=== PATIENT | female | born 1995 | race Caucasian/White ===

== ENCOUNTER 2017-10-18 12:45 | Inpatient (IN) | payer OTHER ==
[2017-10-18 15:12] VITALS: BMI 28.0
[2017-10-18 16:24] LABS: BASO % 0.2 % (0-2.0); EOS % 0.9 % (0-4.5); HEMATOCRIT 31.5 % (32.4-45.2); HEMOGLOBIN 10.5 GM/dL (10.7-15.3); LYMPH % 23.1 % (8-40); MCH 29.6 pg (25.7-33.7); MCHC 33.2 g/dl (32.0-36.0); MEAN CELL VOLUME 89.1 fl (80-96); MONO % 5.5 % (3.8-10.2); NEUT % 70.3 % (42.8-82.8); PLATELET COUNT 190 K/MM3 (134-434); RBC 3.54 M/mm3 (3.60-5.2); RDW 12.9 % (11.6-15.6); WHITE BLOOD COUNT 6.4 K/mm3 (4.0-10.0)
[2017-10-18 16:28] LABS: INR 0.86 (0.82-1.09); PROTHROMBIN TIME (PATIENT) 9.7 SEC (9.98-11.88)
[2017-10-18 16:31] LABS: ACTIVATED PTT 28.4 SECONDS (26.9-34.4)
[2017-10-18 16:37] LABS: ANION GAP 9 (8-16); BLOOD UREA NITROGEN 8 mg/dL (7-18); CALCIUM 8.2 mg/dL (8.5-10.1); CHLORIDE 105 mmol/L (98-107); CO2 22 mmol/L (21-32); CREATININE 0.4 mg/dL (0.55-1.02); GAMMA GLUTAMYL TRANSPEPTIDASE 17 U/L (5-85); GLUCOSE,RANDOM 85 mg/dL (74-106); POTASSIUM 4.1 mmol/L (3.5-5.1); SGOT/AST 29 U/L (15-37); SGPT/ALT 58 U/L (12-78); SODIUM 136 mmol/L (136-145); URIC ACID 4.3 mg/dL (2.6-7.2)
[2017-10-18] MEDS ORDERED: DINOPROSTONE 10 MG VAGINAL SUPPOSITORY VG ONE ×2 (19:05→19:10)
[2017-10-18] MEDS ORDERED: BUTORPHANOL TARTRATE 1 MG/ML VIAL IVPB ONE (19:10)
[2017-10-18] MEDS ORDERED: PROMETHAZINE HCL 25 MG/1 ML VIAL IVPB ONE (19:10)
[2017-10-18] MEDS ORDERED: DEXTROSE 5%-LACTATED RINGERS 1,000 ML IV SCH (19:10)
--- NOTE | 2017-10-18 23:52 | HP ---
Past Medical History - Admission Chief Complaint: Elective induction History of Present Illness: 22 yo @ 36.5 weeks gestation, EDC 11/10/17, sent to L&D for induction of labor by Dr. Cool due to Cholestasis of . History Source: Patient Limitations to Obtaining History: No Limitations - Past Medical History ...: 1 ...Para: 0 ...LMP: 02/03/17 ... Weeks Gestation by Dates: 36.5 ...EDC by Dates: 11/10/17 ...EDC by Sono: 11/10/17 - Past Surgical History Past Surgical History: Yes: None Hx Myomectomy: No Hx Transabdominal Cerclage: No - Smoking History Smoking history: Never smoked Have you smoked in the past 12 months: No - Alcohol/Substance Use Hx Alcohol Use: No History of Substance Use: reports: None - Social History Usual Living Arrangement: Yes: With Significant Other History of Recent Travel: No Home Medications - Allergies Allergies/Adverse Reactions: Allergies Allergy/AdvReac Type Severity Reaction Status Date / Time No Known Allergies Allergy Verified 10/18/17 15:14 - Home Medications Home Medications: Ambulatory Orders Tablet 1 tab-cap PO DAILY 10/18/17 Ursodiol [Actigal -] 300 mg PO TID 10/18/17 Family Disease History - Family Disease History Family History: Unremarkable Review of Systems - Review of Systems Constitutional: reports: No Symptoms Eyes: reports: No Symptoms HENT: reports: No Symptoms Neck: reports: No Symptoms Cardiovascular: reports: No Symptoms Respiratory: reports: No Symptoms Gastrointestinal: reports: No Symptoms Genitourinary: reports: No Symptoms Breasts: reports: No Symptoms Reported Musculoskeletal: reports: No Symptoms Integumentary: reports: No Symptoms Neurological: reports: No Symptoms Endocrine: reports: No Symptoms Hematology/Lymphatic: reports: No Symptoms Psychiatric: reports: No Symptoms Pain Intensity: 2 Physical Exam - Maternity Vital Signs: Vital Signs Temperature 98.7 F 10/18/17 23:00 Pulse Rate 61 10/18/17 23:00 Respiratory Rate 18 10/18/17 23:00 Blood Pressure 112/69 10/18/17 23:00 O2 Sat by Pulse Oximetry (%) Constitutional: Yes: Well Nourished Eyes: Yes: Conjunctiva Clear HENT: Yes: Atraumatic Neck: Yes: Supple Cardiovascular: Yes: Regular Rate and Rhythm Lungs: Clear to auscultation - Abdominal Exam/OB Number of Fetuses: Single Presentation: Vertex - Vaginal Exam/OB Dilatation (cm): 1 Effacement (%): 60 Amniotic Membrane Status: Intact Presentation: Vertex/Position Station: -2 - Physical Exam ...Motor Strength: WNL Psychiatric: Yes: Alert, Oriented - Labs Lab Results: CBC, BMP 10/18/17 15:30 10/18/17 15:30 Problem List - Problems (1) Cholestasis during in third trimester Code(s): O26.613 - LIVER AND BILIARY TRACT DISORD IN , THIRD TRIMESTER ; K83.1 - OBSTRUCTION OF BILE DUCT Assessment/Plan Cholestasis of pregnacy Admit to L&D Cervidil induction
[2017-10-19] MEDS ORDERED: BUTORPHANOL TARTRATE 1 MG/ML VIAL ONE (06:29)
[2017-10-19] MEDS ORDERED: PROMETHAZINE HCL 25 MG/1 ML VIAL ONE (06:29)
[2017-10-19] MEDS ORDERED: PROMETHAZINE HCL 25 MG/1 ML VIAL IVPB ONE (08:52)
[2017-10-19] MEDS ORDERED: BUTORPHANOL TARTRATE 1 MG/ML VIAL IVPUSH ONE (08:52)
--- NOTE | 2017-10-19 08:52 | PN ---
Progress Note (short form) - Note Progress Note: cx 3 cm 80 vx -2 mi, fhr cat 1 , irregular contraction, cervidil was removed at 7 10 am, advised pitrenae, rbapril discussed
[2017-10-19] MEDS ORDERED: OXYTOCIN 30 UNITS in 0.9% NS 30 UNIT/500 ML INFUS.BAG IVPB SCH (09:00)
[2017-10-19] MEDS ORDERED: AMPICILLIN SODIUM 2 GM VIAL ONE (09:06)
[2017-10-19] MEDS ORDERED: AMPICILLIN - 2 GM in SODIUM CHLORIDE 100 ML IVPB ONE (09:07)
[2017-10-19] MEDS: ELECTROLYTE-148 SOLN 1,000 ML IV SCH ×2 (09:45→14:31)
[2017-10-19] MEDS ORDERED: FENTANYL/BUPIVACAINE/NS/PF - PCEA - 50 ML DISP.SYRIN EP ONE ×2 (09:48→14:14)
[2017-10-19] MEDS ORDERED: NALOXONE HCL 0.4 MG/ML VIAL IVPUSH PRN (10:27)
[2017-10-19] MEDS ORDERED: FENTANYL/BUPIVACAINE/NS/PF - PCEA - 50 ML DISP.SYRIN EP SCH (10:30)
--- NOTE | 2017-10-19 13:11 | PN ---
Progress Note (short form) - Note Progress Note: cx 4 cm 80 vx -1 mi ,bulging., arom clear , fhr cat 1, regular contraction q 2 min
[2017-10-19] MEDS ORDERED: AMPICILLIN - 1 GM in SODIUM CHLORIDE 100 ML IVPB SCH (13:15)
[2017-10-19] MEDS: PRENATAL VITAMINS W/ FOLIC ACID TABLET (FP) PO SCH (14:30)
[2017-10-19] MEDS: FENTANYL/BUPIVACAINE/NS/PF - PCEA - 50 ML DISP.SYRIN EP SCH (14:30)
[2017-10-19] MEDS ORDERED: LIDOCAINE HCL 1% PRESERVATIVE FREE - 30ML VIAL ONE (15:35)
[2017-10-19] MEDS ORDERED: OXYTOCIN 20 UNITS in 0.9% NS 20 UNIT/1,000 ML INFUS.BAG IV ONE ×2 (15:36→19:55)
[2017-10-19] MEDS ORDERED: oxyCODONE HCL 5 MG TABLET PO PRN (16:20)
[2017-10-19] MEDS ORDERED: BENZOCAINE 20% 57 GM BOTTLE TP PRN (16:20)
[2017-10-19] MEDS ORDERED: METHYLERGONOVINE MALEATE 0.2 MG/1 ML AMP IM PRN (16:20)
[2017-10-19] MEDS ORDERED: WITCH HAZEL 50% (TUCKS) 40 PAD/JAR PAD TP PRN (16:20)
[2017-10-19] MEDS ORDERED: BISACODYL 10 MG SUPP.RECT RC PRN (16:20)
[2017-10-19] MEDS ORDERED: BENZOCAINE 28 GM HEMORRHOIDAL OINTMENT TP PRN (16:20)
[2017-10-19] MEDS ORDERED: D5W-LR W/ 20 UNITS OXYTOCIN 20 UNIT/1,000 ML INFUS.BAG IV SCH (16:30)
[2017-10-19] MEDS ORDERED: ACETAMINOPHEN 325 MG TABLET (FP) ONE (17:30)
[2017-10-19] MEDS ORDERED: IBUPROFEN 600 MG TABLET (FP) PO ONE (17:30)
[2017-10-19] MEDS: IBUPROFEN 600 MG TABLET (FP) PO PRN (17:33)
[2017-10-19] MEDS: ACETAMINOPHEN 325 MG TABLET (FP) PO PRN (17:35)
[2017-10-19] MEDS ORDERED: OXYTOCIN 20 UNITS in 0.9% NS 20 UNIT/1,000 ML INFUS.BAG IV SCH (18:45)
[2017-10-20] MEDS: IBUPROFEN 600 MG TABLET (FP) PO PRN ×2 (08:00→15:28)
[2017-10-20] MEDS: FERROUS SO4 325 MG TABLET (FP) PO SCH ×2 (08:02→17:14)
[2017-10-20] MEDS: ACETAMINOPHEN 325 MG TABLET (FP) PO PRN ×2 (08:02→15:28)
--- NOTE | 2017-10-20 08:09 | PN ---
Post Progress Note - Subjective Subjective: c/o pain in vaginal & perineal area Post Day: 1 Type of Delivery: Vital Signs: Vital Signs Temperature 98.4 F 10/20/17 03:00 Pulse Rate 64 10/20/17 03:00 Respiratory Rate 18 10/20/17 03:00 Blood Pressure 104/68 10/20/17 03:00 O2 Sat by Pulse Oximetry (%) 100 10/19/17 16:30 Breast Exam: Yes: Soft, Other (BF attempting ). No: Engorged Uterus: Yes: Fundus Firm, Fundus below umbilicus, Non-tender Lochia: Yes: Rubra Lochia, amount: Moderate Extremities: Yes: Calves non-tender Perineum: Yes: Laceration Activity: Ambulating - Labs Labs: CBC WBC 6.4 K/mm3 (4.0-10.0) 10/18/17 15:30 RBC 3.54 M/mm3 (3.60-5.2) L 10/18/17 15:30 Hgb 10.5 GM/dL (10.7-15.3) L 10/18/17 15:30 Hct 31.5 % (32.4-45.2) L 10/18/17 15:30 MCV 89.1 fl (80-96) 10/18/17 15:30 MCH 29.6 pg (25.7-33.7) 10/18/17 15:30 MCHC 33.2 g/dl (32.0-36.0) 10/18/17 15:30 RDW 12.9 % (11.6-15.6) 10/18/17 15:30 Plt Count 190 K/MM3 (134-434) 10/18/17 15:30 MPV 10.0 fl (7.5-11.1) 10/18/17 15:30 Neutrophils % 70.3 % (42.8-82.8) 10/18/17 15:30 Lymphocytes % 23.1 % (8-40) 10/18/17 15:30 Monocytes % 5.5 % (3.8-10.2) 10/18/17 15:30 Eosinophils % 0.9 % (0-4.5) 10/18/17 15:30 Basophils % 0.2 % (0-2.0) 10/18/17 15:30 Retic Count 1.80 % (0.5-1.5) H 10/18/17 15:30 Haptoglobin 79 mg/dL (34-200) 10/18/17 15:30 Assessment/Plan pp cbc pending pt stab;e plan ct pp care
[2017-10-20 08:26] LABS: BASO % 0.3 % (0-2.0); EOS % 0.3 % (0-4.5); HEMATOCRIT 26.8 % (32.4-45.2); HEMOGLOBIN 8.8 GM/dL (10.7-15.3); LYMPH % 18.2 % (8-40); MCH 29.4 pg (25.7-33.7); MCHC 32.9 g/dl (32.0-36.0); MEAN CELL VOLUME 89.4 fl (80-96); MEAN PLT VOLUME 9.9 fl (7.5-11.1); MONO % 5.8 % (3.8-10.2); NEUT % 75.4 % (42.8-82.8); PLATELET COUNT 183 K/MM3 (134-434); RDW 13.5 % (11.6-15.6); WHITE BLOOD COUNT 10.6 K/mm3 (4.0-10.0)
[2017-10-20] MEDS ORDERED: PRENATAL VITAMINS W/ FOLIC ACID TABLET (FP) PO SCH (10:00)
[2017-10-20] MEDS: PRENATAL VITAMINS W/ FOLIC ACID TABLET (FP) PO SCH (10:19)
[2017-10-20] MEDS ORDERED: SENNOSIDES/DOCUSATE COMBO (SENNA PLUS) TABLET (UD) PO PRN (22:00)
[2017-10-21] MEDS: FENTANYL/BUPIVACAINE/NS/PF - PCEA - 50 ML DISP.SYRIN EP SCH (06:44)
--- NOTE | 2017-10-21 07:38 | PN ---
Post Progress Note - Subjective Subjective: no complains today Post Day: 2 Type of Delivery: Vital Signs: Vital Signs Temperature 98.0 F 10/20/17 21:16 Pulse Rate 88 10/20/17 21:16 Respiratory Rate 20 10/20/17 21:16 Blood Pressure 120/67 10/20/17 21:16 O2 Sat by Pulse Oximetry (%) 100 10/19/17 16:30 Breast Exam: Yes: Soft, Other (BF). No: Engorged Uterus: Yes: Fundus Firm, Non-tender Lochia: Yes: Rubra Lochia, amount: Moderate Extremities: Yes: Calves non-tender Perineum: Yes: Laceration (healing ) Activity: Ambulating - Labs Labs: CBC WBC 10.6 K/mm3 (4.0-10.0) H D 10/20/17 07:45 RBC 3.00 M/mm3 (3.60-5.2) L 10/20/17 07:45 Hgb 8.8 GM/dL (10.7-15.3) L D 10/20/17 07:45 Hct 26.8 % (32.4-45.2) L 10/20/17 07:45 MCV 89.4 fl (80-96) 10/20/17 07:45 MCH 29.4 pg (25.7-33.7) 10/20/17 07:45 MCHC 32.9 g/dl (32.0-36.0) 10/20/17 07:45 RDW 13.5 % (11.6-15.6) 10/20/17 07:45 Plt Count 183 K/MM3 (134-434) 10/20/17 07:45 MPV 9.9 fl (7.5-11.1) 10/20/17 07:45 Neutrophils % 75.4 % (42.8-82.8) 10/20/17 07:45 Lymphocytes % 18.2 % (8-40) D 10/20/17 07:45 Monocytes % 5.8 % (3.8-10.2) 10/20/17 07:45 Eosinophils % 0.3 % (0-4.5) 10/20/17 07:45 Basophils % 0.3 % (0-2.0) 10/20/17 07:45 Retic Count 1.80 % (0.5-1.5) H 10/18/17 15:30 Haptoglobin 79 mg/dL (34-200) 10/18/17 15:30 Assessment/Plan pp anemia discharge today
[2017-10-21 08:46] VITALS: BP 111/74; PULSE 83; TEMP 98.1
[2017-10-21] MEDS: FERROUS SO4 325 MG TABLET (FP) PO SCH (09:13)
[2017-10-21] MEDS: PRENATAL VITAMINS W/ FOLIC ACID TABLET (FP) PO SCH (09:13)
--- NOTE | 2017-10-25 15:36 | DS ---
Physical Exam-MOTOR TESTER Vital Signs: Vital Signs Temperature 98.1 F 10/21/17 10:00 Pulse Rate 83 10/21/17 10:00 Respiratory Rate 20 10/21/17 10:00 Blood Pressure 111/74 10/21/17 10:00 O2 Sat by Pulse Oximetry (%) 100 10/19/17 16:30 Constitutional: Yes: Well Nourished, No Distress, Calm Eyes: Yes: WNL, Conjunctiva Clear, EOM Intact HENT: Yes: WNL, Atraumatic, Normocephalic Neck: Yes: WNL, Supple, Trachea Midline Cardiovascular: Yes: WNL, Regular Rate and Rhythm Respiratory: Yes: WNL, Regular, CTA Bilaterally Gastrointestinal: Yes: WNL ...Rectal Exam: Yes: WNL Renal/: Yes: WNL ....Post : Yes: Uterus firm, Uterus non-tender, Slight lochia rubra Breast(s): Yes: WNL Musculoskeletal: Yes: WNL Extremities: Yes: WNL Edema: No Integumentary: Yes: WNL Neurological: Yes: WNL, Alert, Oriented ...Motor Strength: WNL Psychiatric: Yes: WNL, Alert, Oriented Labs: CBC, BMP 10/20/17 07:45 10/18/17 15:30 Delivery - Delivery Vaginal Delivery: Spontaneous (NO COMPLICATION) Type of Anesthesia: Epidural Episiotomy/Laceration: Midline EBL (cc): 300 Delivery, Single - Stages of Labor Date 1st Stage Initiatied: 10/18/17 Time 1st Stage Initiated: 19:00 Date 2nd Stage Initiated: 10/19/17 Time 2nd Stage Initiated: 15:40 Date of Delivery: 10/19/17 Time of Delivery: 16:01 Time Placenta Delivered: 16:12 Placenta: Yes: Spontaneous - Condition of Biometrics Consultant/Accounts Adjustable Clerk Present: No Infant Gender: Male Weight: 6 lb 11 oz Position: Left, OA Total Hours ROM (Hrs/Mins): 3HR/12MIN - 1 Minute Total Score: 9 5 Minutes Total Score: 9 - Feeding Plan Initial Plan: Exclusive throughout hospitalization Discharge Summary Reason For Visit: INDUCTION OF LABOR CHOLESTASIS OF Procedures: Principal: Other Procedures: INDUCTION OF LABOR WITH CERVIDIL Condition: Stable - Instructions Diet, Activity, Other Instructions: Post Instructions DIET: Continue good diet high in protein, calcium, and iron rich foods. Drink at least eight (8) glasses of water daily in addition to other fluids. ___ Regular diet MEDICATIONS: Continue vitamins and iron as previously directed. Motrin and Tylenol may be taken for minor discomfort. ACTIVITY: Mild to moderate exercise may be started in two (2) weeks. Take frequent rest periods. Resume normal activity after six (6) week check up. WOUND CARE OF OPERATIVE SITE: Continue use of perineal bottle until vaginal discharge stops. Keep area clean. Shower daily. Keep abdominal wound dry. Report any drainage or redness to physician. Tub baths, tampons and douches are not permitted for [address] Breast feeding & or Bottle feeding BREAST CARE: (For those that are not breast feeding): If engorgement occurs: Wear tight fitting bra. Take Tylenol or Motrin for pain. Apply cold packs (ice in bags to each breast ) FAMILY PLANNING: There are many control alternatives to pursue and they should be discussed at your first office visit. You may resume sexual activity after your six (6) week check up. (Remember, breast feeding is not a contraceptive) NEXT PHYSICIAN APPOINTMENT: Be certain to call for a six (6) week appointment, unless otherwise directed. call [phone] for appt Call Clinic or got to Emergency Dept if you have any of the following: Heavy vaginal bleeding Painful urination Leg pain Unusual odor noted to vaginal bleeding High fever Red streaking noted on breast Referrals: [facility] ([facility]) [Outside] Disposition: HOME - Home Medications Comprehensive Discharge Medication List: Ambulatory Orders Tablet 1 tab-cap PO DAILY 10/18/17 Acetaminophen [Tylenol .Regular Strength -] 650 mg PO Q3H PRN tablet 10/21/17 Benzocaine [Americaine 20% [place] -] 1 spray TP PRN PRN bottle 10/21/17 Ferrous Sulfate [Feosol] 325 mg PO BIDWM #60 tab 10/21/17 Ibuprofen [Motrin -] 200 mg PO Q4H PRN tablet 10/21/17 Vitamins (Sjr) - 1 tab PO DAILY tablet 10/21/17 Witch Marlene 50% (Tucks) [Tucks Pads -] 1 pad TP PRN PRN pad 10/21/17
== END 2017-10-21 12:50 | disposition home or self-care (01) | DRG 560 ==
LOC: JDEL 12:45 → JLDR 14:30 → J3W 10-19 20:26
PROVIDERS: ADMIT Obstetrics & Gynecology; ATTEND Obstetrics & Gynecology
PROC: 10E0XZZ Delivery of Products of Conception, External Approach (ICD-10-PCS; principal; 2017-10-19)
PROC: 0HQ9XZZ Repair Perineum Skin, External Approach (ICD-10-PCS; 2017-10-19)
DX: O26.613 Liver and biliary tract disorders in pregnancy, third trimester (principal); K83.1 Obstruction of bile duct; O70.0 First degree perineal laceration during delivery; O60.23X1 Term delivery with preterm labor, third trimester, fetus 1; O99.02 Anemia complicating childbirth; D64.9 Anemia, unspecified; Z3A.36 36 weeks gestation of pregnancy; Z37.0 Single live birth
CPT/HCPCS: 36415; 59409; 80048; 82977; 83010; 84450; 84460; 84550; 85025; 85044; 85610; 85730; 86593; 86850; 86900; 86901

== ENCOUNTER 2019-07-26 23:25 | Emergency (ER) | payer OTHER ==
[2019-07-26 23:42] VITALS: BMI 29.8
--- NOTE | 2019-07-26 23:46 | PDOC ---
History of Present Illness - General Chief Complaint: Ear Problem Stated Complaint: EARACHE Time Seen by Provider: 07/26/19 23:30 History Source: Patient Exam Limitations: No Limitations - History of Present Illness Initial Comments: 07/26/19 23:46 HISTORY OF PRESENT ILLNESS: This is a 23-year-old woman who is 38 weeks gestation 2 para 1 who presents to the emergency department for evaluation of left ear pain for the past 3 days. Patient denies any hearing loss or discharge from her ears. Patient denies fevers, chills, blurry vision, dizziness or nasal congestion. No recent travel or sick contacts. PAST MEDICAL HISTORY: Denies past medical history SURGICAL HISTORY: Denies ALLERGIES: No known drug allergies REVIEW OF SYSTEMS General/Constitutional: Denies fever or chills. Denies weakness, weight change. HEENT: See HPI Cardiovascular: Denies chest pain or shortness of breath. Respiratory: Denies cough, wheezing, or hemoptysis. Gastrointestinal: Denies nausea, vomiting, diarrhea or constipation. Denies rectal bleeding. Genitourinary: Denies dysuria, frequency, or change in urination. Musculoskeletal: Denies joint or muscle swelling or pain. Denies neck or back pain. Skin and breasts: Denies rash or easy bruising. Neurologic: Denies headache, vertigo, loss of consciousness, or loss of sensation. Psychiatric: Denies depression or anxiety. Endocrine: Denies increased thirst. Denies abnormal weight change. Hematologic/Lymphatic: Denies anemia, easy bleeding, or history of blood clots. Allergic/Immunologic: Denies hives or skin allergy. Denies latex allergy. PHYSICAL EXAM General Appearance: Well-appearing, appropriately dressed. No apparent distress , no intoxication. HEENT: EOMI, PERRLA, normal ENT inspection, normal voice, pharynx normal. No conjunctival pallor. No photophobia, scleral icterus. Left tragal tenderness. Left TM erythematous with effusion present. External auditory canals clear bilaterally. Right TM is within normal limits Neck: Supple. Trachea midline. No tenderness, rigidity, carotid bruit, stridor , lymphadenopathy, or thyromegaly. Respiratory/Chest: Lungs CTAB. No shortness of breath, chest tenderness, respiratory distress, accessory muscle use. No crackles, rales, rhonchi, stridor , wheezing, dullness Cardiovascular: RRR. S1, S2. No JVD, murmur, bradycardia, tachycardia. Gastrointestinal/Abdominal: Gravid abdomen with normal bowel sounds. Lymphatic: No adenopathy, tenderness. Past History - Past Medical History Allergies/Adverse Reactions: Allergies Allergy/AdvReac Type Severity Reaction Status Date / Time No Known Allergies Allergy Verified 07/26/19 23:33 Home Medications: Ambulatory Orders Acetaminophen [Tylenol .Regular Strength -] 650 mg PO Q3H PRN tablet 10/21/17 Ferrous Sulfate [Feosol] 325 mg PO BIDWM #60 tab 10/21/17 Ibuprofen [Motrin -] 200 mg PO Q4H PRN tablet 10/21/17 Amoxicillin - [Amoxicillin 500mg Capsule -] 500 mg PO BID #20 capsule 07/26/19 Asthma: No Cancer: No Cardiac Disorders: No COPD: No Diabetes: No HTN: No Seizures: No Thyroid Disease: No - Reproductive History Is Patient Now?: Yes Therapeutic (s) & number: No - Immunization History Immunization Up to Date: Yes - Psycho Social/Smoking Cessation Hx Smoking History: Never smoked Have you smoked in the past 12 months: No Information on smoking cessation initiated: No Hx Alcohol Use: No Drug/Substance Use Hx: No Hx Substance Use Treatment: No *Physical Exam - Vital Signs Last Vital Signs Temp Pulse Resp BP Pulse Ox 97.9 F 99 H 20 112/81 98 07/26/19 23:40 07/26/19 23:40 07/26/19 23:40 07/26/19 23:40 07/26/19 23:40 Medical Decision Making - Medical Decision Making 07/26/19 23:45 A/P: 23-year-old woman 38 weeks gestation with left otitis media Amoxicillin 500 mg orally to be taken twice daily for the next 10 days No JUNIOR SYSTEMS ADMINISTRATOR complaints at this time Patient to be transferred to L&D for monitoring. Spoke with Dr. Ravi on the labor and delivery floor who is expecting the patient. I discussed the physical exam findings, ancillary test results and final diagnoses with the patient. I answered all of the patient's questions. The patient was satisfied with the care received and felt comfortable with the discharge plan and treatment plan. The patient will call their primary care physician within 24 hours to arrange follow-up and will return to the Emergency Department with any new, persistent or worsening symptoms. Discharge - Discharge Information Problems reviewed: Yes Clinical Impression/Diagnosis: Acute otitis media with effusion of left ear Condition: Stable Disposition: HOME - Admission No - Additional Discharge Information Prescriptions: Amoxicillin - [Amoxicillin 500mg Capsule -] 500 mg PO BID #20 capsule - Follow up/Referral - Patient Discharge Instructions Additional Instructions: Take amoxicillin 500 mg twice a day as prescribed. Take Tylenol as needed for fever and pain. Follow manufacturers instructions for appropriate dosage. Make an appointment with your doctor for reevaluation if symptoms do not improve in the next 4 days. Return to emergency department for worsening pain, fevers even while giving medication, drainage from the ears, change in child's behavior, or any other concerns. Thank you very much for choosing us to provide your emergent healthcare needs. [place] amoxicilina 500 mg dos veces al da segn lo prescrito. [place] Tylenol segn sea necesario para la fiebre y el dolor. Siga las instrucciones del fabricante para la dosis adecuada. Julián rachel lluvia con michele mdico para rachel reevaluacin si los sntomas no mejoran en los prximos 4 acosta. Regrese al departamento de emergencias para empeorar el dolor, la fiebre, incluso mientras administra medicamentos, drenaje de los odos, cambios en el comportamiento del nio o cualquier otra inquietud. Muchas christina por elegirnos para satisfacer luis necesidades de atencin mdica emergentes. - Post Discharge Activity
[2019-07-27 02:35] VITALS: BP 115/71; PULSE 105; TEMP 98.6
== END 2019-07-27 01:20 | disposition home or self-care (01) ==
LOC: JER 23:25
DX: H65.92 Unspecified nonsuppurative otitis media, left ear (principal); O26.893 Other specified pregnancy related conditions, third trimester; Z3A.38 38 weeks gestation of pregnancy
CPT/HCPCS: 99282-25

== ENCOUNTER 2019-07-30 19:45 | Inpatient (IN) | payer OTHER ==
[2019-07-30] MEDS ORDERED: PROMETHAZINE HCL 25 MG/1 ML VIAL IVPUSH ONE (20:01)
[2019-07-30] MEDS ORDERED: BUTORPHANOL TARTRATE 1 MG/ML VIAL IVPB PRN (20:01)
--- NOTE | 2019-07-30 20:08 | HP ---
Past Medical History - Admission Chief Complaint: IOL for Cholestasis History of Present Illness: 23yo 37@ wks by LMP c/w danis, DANIEL 08/20/19 here for IOL for cholestasis. No VB/LOF. No ctx. +FM PNC @ [address] Preg c/b cholestasis (bile acids 67, diagnosed 06/26), history of cholestasis in last ( 09/2017), recently treated for ear infection 07/26/2019 History Source: Patient Limitations to Obtaining History: Language Barrier - Past Medical History ECONOMETRICIAN: No: Alzheimer's, CVA, Dementia, Migraine, Multiple Sclerosis, Peripheral Neuropathy, Parkinson's, Seizure, Syncope, TIA, Vertigo, Other Cardiovascular: No: AFIB, Aneurysm, Aortic Insufficiency, Aortic Stenosis, CAD, CHF, Deep Vein Thrombosis, HTN, Hyperlipdemia, IA, Mitral Insufficiency, Mitral Stenosis, Murmur, Pulmonary Hypertension, Other Pulmonary: No: Asthma, Bronchitis, Cancer, COPD, O2 Dependent, Pneumonia, Previously Intubated, Pulmonary Embolus, Pulmonary Fibrosis, Sleep Apnea, Other Gastrointestinal: No: Ascites, Cancer, Constipation, Crohn's Disease, Diverticulitis, Diverticulosis, Esophageal Varices, Gastritis, GERD, GI Bleed, Hemorrhoids, Hiatal Hernia, Inflamatory Bowel Disease, Irritable Bowel Disease, Pancreatitis, Peptic Ulcer Disease, Ulcerative Colitis, Other ...: 2 ...Para: 1 ...: 1 ...EDC by Dates: 08/20/19 ...EDC by Sono: 08/28/19 ENT: Yes: Other (Ear Infection 06/2019) - Past Surgical History Past Surgical History: Yes: None Hx Myomectomy: No Hx Transabdominal Cerclage: No - Smoking History Smoking history: Never smoked Have you smoked in the past 12 months: No - Alcohol/Substance Use Hx Alcohol Use: No History of Substance Use: reports: None - Social History Usual Living Arrangement: Yes: With Spouse Do you think of yourself as: Straight/Heterosexual ADL: Independent History of Recent Travel: No Review of Systems - Review of Systems Constitutional: denies: No Symptoms, Chills, Diaphoresis, Fever, Lethargy, Loss of Appetite, Malaise, Night Sweats, Unintentional Wgt. Loss, Weakness, Other Cardiovascular: denies: No Symptoms, Chest Pain, Edema, Palpitations, Shortness of Breath, Other Respiratory: denies: No Symptoms, Cough, Exercise Intolerance, Hemoptysis, Orthopnea, PND, Snoring, SOB, SOB on Exertion, Wheezing, Other Gastrointestinal: denies: No Symptoms, Abdominal Pain, Bloating, Constipation, Diarrhea, Dysphagia, Indigestion, Melena, Nausea, Rectal Bleeding, Vomiting, Vomiting Blood, Other Physical Exam - Maternity - Abdominal Exam/OB Number of Fetuses: Single Presentation: Vertex Contractions: No Heart Rate Location: [facility] Category: I Accelerations: None Decelerations: None - Vaginal Exam/OB Vaginal Bleediing: No Speculum Exam: No Dilatation (cm): 1 Effacement (%): 25 Amniotic Membrane Status: Intact Presentation: Vertex/Position Station: -3 - Physical Exam Edema: No Problem List - Problems (1) Cholestasis during in third trimester Code(s): O26.613 - LIVER AND BILIARY TRACT DISORD IN , THIRD TRIMESTER ; K83.1 - OBSTRUCTION OF BILE DUCT Assessment/Plan 23yo @ 37.0wks by LMP/sono here for IOL for cholestasis of Admit to L&D Reassuring FHT, Cat I Cervidil now Pitocin/AROM when favorable Stadol/epidural prn GBS negative Anticipate ADY Gimenez MD
[2019-07-30] MEDS: ELECTROLYTE-148 SOLN 1,000 ML IV SCH (20:15)
[2019-07-30] MEDS ORDERED: PROMETHAZINE HCL 25 MG/1 ML VIAL IVPUSH PRN (20:28)
[2019-07-30] MEDS ORDERED: DINOPROSTONE 10 MG VAGINAL SUPPOSITORY VG ONE (20:34)
[2019-07-30 20:40] LABS: BASO % 0.4 % (0-2.0); EOS % 1.7 % (0-4.5); HEMATOCRIT 27.4 % (32.4-45.2); HEMOGLOBIN 9.6 GM/dL (10.7-15.3); LYMPH % 23.9 % (8-40); MCHC 35.2 g/dl (32.0-36.0); MEAN CELL VOLUME 85.3 fl (80-96); MEAN PLT VOLUME 8.7 fl (7.5-11.1); MONO % 6.2 % (3.8-10.2); NEUT % 67.8 % (42.8-82.8); PLATELET COUNT 250 K/MM3 (134-434); RBC 3.22 M/mm3 (3.60-5.2); RDW 13.6 % (11.6-15.6); WHITE BLOOD COUNT 7.3 K/mm3 (4.0-10.0)
[2019-07-30 20:51] LABS: BLOOD UREA NITROGEN 10.6 mg/dL (7-18); CALCIUM 8.3 mg/dL (8.5-10.1); CREATININE 0.3 mg/dL (0.55-1.3); POTASSIUM 3.9 mmol/L (3.5-5.1)
[2019-07-30 20:56] LABS: INR 0.92 (0.83-1.09); PROTHROMBIN TIME (PATIENT) 10.9 SEC (9.7-13.0)
[2019-07-30 20:59] LABS: ACTIVATED PTT 26.4 SECONDS (25.2-36.5)
[2019-07-30 21:19] VITALS: BMI 25.7
[2019-07-31] MEDS: ELECTROLYTE-148 SOLN 1,000 ML IV SCH (03:00)
--- NOTE | 2019-07-31 08:23 | PN ---
Progress Note, Labor Vaginal Exam #1 Labor Exam Date: 07/31/19 Labor Exam Time: 08:22 Heart Rate (range): Cat I Dilatation: 3 Effacement (%): 50 Presentation: Vertex/Position Station: -3 Remarks: Pt comfortable Cervidil pulled AROM, clears Consider starting pitocin Anticipate Zhen Gimenez MD
[2019-07-31] MEDS ORDERED: OXYTOCIN 30 UNITS in 0.9% NS 30 UNIT/500 ML INFUS.BAG IVPB SCH (08:30)
[2019-07-31] MEDS ORDERED: FENTANYL/BUPIVACAINE/NS/PF - PCEA - 50 ML DISP.SYRIN EP ONE (11:02)
[2019-07-31] MEDS ORDERED: NALOXONE HCL 0.4 MG/ML VIAL IVPUSH PRN (11:04)
--- NOTE | 2019-07-31 11:09 | PN ---
Progress Note, Labor Vaginal Exam #2 Labor Exam Date: 07/31/19 Labor Exam Time: 11:07 Heart Rate (range): Cat I Dilatation: 4 Effacement (%): 50 Amniotic Membrane Status: Ruptured Presentation: Vertex/Position Station: -3 Remarks: Pt getting more uncomfortable Requesting epidural lang [id number] Anticipate Zhen Gimenez MD
[2019-07-31] MEDS ORDERED: FENTANYL/BUPIVACAINE/NS/PF - PCEA - 50 ML DISP.SYRIN EP SCH (11:15)
[2019-07-31] MEDS ORDERED: OXYTOCIN 20 UNITS in 0.9% NS 20 UNIT/1,000 ML INFUS.BAG IV ONE (14:07)
[2019-07-31] MEDS ORDERED: LIDOCAINE HCL 1% PRESERVATIVE FREE - 30ML VIAL ONE (14:07)
--- NOTE | 2019-07-31 14:10 | PN ---
Ante-Partal Exam - Subjective Subjective: Patient evaluated for post-epidural check Vital Signs: Vital Signs Temperature 98.4 F 07/31/19 12:00 Pulse Rate 77 07/31/19 13:00 Respiratory Rate 18 07/31/19 13:00 Blood Pressure 105/68 07/31/19 13:00 O2 Sat by Pulse Oximetry (%) 95 07/31/19 13:00 Bleeding: No Headache: No Visual changes: No Right upper quadrant pain: No - Contractions Contractions: Yes Regularity: Regular Intensity: Mild Monitor Mode: External - Exam during Labor Heart Rate: 150 Variability: Moderate Category: I Monitor Accelerations: Present Monitor Decelerations: Variable (small) Exam: Vaginal Dilatation (cm): 10 Effacement (%): 100 Amniotic Membrane Status: Ruptured Nitrazine Test: Positive Presentation: Vertex Station: +3 - Assessment/Plan Assessment/Plan: 23 y/o @ 37.1wks, induction of labor for cholestasis of , reassuring status, S/P AROM and epidural . -D/C epidural -Anticipate VD
[2019-07-31] MEDS ORDERED: IBUPROFEN 600 MG TABLET (FP) PO ONE (15:06)
[2019-07-31] MEDS ORDERED: ACETAMINOPHEN 325 MG TABLET (FP) ONE (15:06)
[2019-07-31] MEDS: ACETAMINOPHEN 325 MG TABLET (FP) PO PRN ×2 (15:08→21:15)
[2019-07-31] MEDS: IBUPROFEN 600 MG TABLET (FP) PO PRN ×2 (15:08→21:15)
[2019-07-31] MEDS ORDERED: BENZOCAINE 20% 57 GM BOTTLE TP PRN (15:14)
[2019-07-31] MEDS ORDERED: BENZOCAINE 28 GM HEMORRHOIDAL OINTMENT TP PRN (15:14)
[2019-07-31] MEDS ORDERED: BISACODYL 10 MG SUPP.RECT RC PRN (15:14)
[2019-07-31] MEDS ORDERED: WITCH HAZEL 50% (TUCKS) 40 PAD/JAR PAD TP PRN (15:14)
[2019-07-31] MEDS ORDERED: OXYTOCIN 20 UNITS in 0.9% NS 20 UNIT/1,000 ML INFUS.BAG IV SCH (15:15)
--- NOTE | 2019-07-31 15:20 | PN ---
Delivery - Delivery Type of Anesthesia: Epidural Episiotomy/Laceration: 1st degree (Reaipred with 2 interrupted figure 8 3.0polysorb) EBL (cc): 200 Delivery, Single - Stages of Labor Placenta: Yes: Spontaneous - Condition of Gender: Female Position: OA - [place] Feeding Plan Initial Plan: Elected not to breastfeed exclusively throughout hospitalization Remarks - Remarks Remarks: Infant's head delivered OA, loose nuchal cord x 1 removed. head restituted to ANATOLY. Shoulders delivered w/o difficulty followed by rest of the body. Cord clamped and cut after dealy. Placenta delivered spontaneously and intact, 3 vC. Exam revealed firm uterus and 1st degree with mild oozing. Interrupted figure of 8, 3.0 polysorb suture. Sponge/instrument counst correct x 2 and confirmed by nurse.
--- NOTE | 2019-08-01 07:55 | PN ---
Post Progress Note - Subjective Subjective: Abulating, attempting to breast feed, lochia decreased, voiding Post Day: 1 Type of Delivery: Vital Signs: Vital Signs Temperature 98.2 F 08/01/19 06:00 Pulse Rate 83 08/01/19 06:00 Respiratory Rate 18 08/01/19 06:00 Blood Pressure 96/56 L 08/01/19 06:00 O2 Sat by Pulse Oximetry (%) 95 07/31/19 17:00 Breast Exam: Yes: Other (deferred) Uterus: Yes: Fundus Firm Abdomen/GI: Yes: Abdomen soft Lochia, amount: Moderate Extremities: Yes: Calves non-tender Perineum: Yes: Intact (repaired in place) Activity: Ambulating - Labs Labs: CBC WBC 7.3 K/mm3 (4.0-10.0) 07/30/19 20:20 RBC 3.22 M/mm3 (3.60-5.2) L 07/30/19 20:20 Hgb 9.6 GM/dL (10.7-15.3) L 07/30/19 20:20 Hct 27.4 % (32.4-45.2) L 07/30/19 20:20 MCV 85.3 fl (80-96) 07/30/19 20:20 MCH 30.0 pg (25.7-33.7) 07/30/19 20:20 MCHC 35.2 g/dl (32.0-36.0) 07/30/19 20:20 RDW 13.6 % (11.6-15.6) 07/30/19 20:20 Plt Count 250 K/MM3 (134-434) 07/30/19 20:20 MPV 8.7 fl (7.5-11.1) 07/30/19 20:20 Absolute Neuts (auto) 4.9 K/mm3 (1.5-8.0) 07/30/19 20:20 Neutrophils % 67.8 % (42.8-82.8) 07/30/19 20:20 Lymphocytes % 23.9 % (8-40) 07/30/19 20:20 Monocytes % 6.2 % (3.8-10.2) 07/30/19 20:20 Eosinophils % 1.7 % (0-4.5) 07/30/19 20:20 Basophils % 0.4 % (0-2.0) 07/30/19 20:20 Nucleated RBC % 0 % (0-0) 07/30/19 20:20 Assessment/Plan PPD # 1 S/P induction for cholestasis of -Continue PP care -F/U AM CBC -Anticipate D?C home on PPD # 2
[2019-08-01 09:20] LABS: BASO % 0.3 % (0-2.0); EOS % 1.6 % (0-4.5); HEMATOCRIT 26.5 % (32.4-45.2); HEMOGLOBIN 8.9 GM/dL (10.7-15.3); LYMPH % 24.5 % (8-40); MCH 28.8 pg (25.7-33.7); MCHC 33.5 g/dl (32.0-36.0); MEAN PLT VOLUME 9.2 fl (7.5-11.1); MONO % 5.5 % (3.8-10.2); NEUT % 68.1 % (42.8-82.8); PLATELET COUNT 228 K/MM3 (134-434); RBC 3.08 M/mm3 (3.60-5.2); RDW 14.1 % (11.6-15.6); WHITE BLOOD COUNT 8.6 K/mm3 (4.0-10.0)
[2019-08-01] MEDS: ACETAMINOPHEN 325 MG TABLET (FP) PO PRN ×2 (09:55→21:05)
[2019-08-01] MEDS: IBUPROFEN 600 MG TABLET (FP) PO PRN ×2 (09:55→21:06)
[2019-08-01 16:09] VITALS: TEMP 98.4
[2019-08-01] MEDS ORDERED: SENNOSIDES/DOCUSATE COMBO (SENNA PLUS) TABLET (UD) PO PRN (22:00)
--- NOTE | 2019-08-02 08:36 | PN ---
Post Progress Note - Subjective Subjective: no complains no dizziness Post Day: 2 Type of Delivery: Vital Signs: Vital Signs Temperature 98.4 F 08/01/19 22:00 Pulse Rate 83 08/01/19 22:00 Respiratory Rate 18 08/01/19 22:00 Blood Pressure 126/55 L 08/01/19 22:00 O2 Sat by Pulse Oximetry (%) 95 07/31/19 17:00 Breast Exam: Yes: Soft, Other (BF ). No: Engorged Uterus: Yes: Fundus Firm, Fundus below umbilicus, Non-tender Lochia: Yes: Rubra Lochia, amount: Moderate Extremities: Yes: Calves non-tender Perineum: Yes: Episiotomy (healing, no c/o soreness) Activity: Ambulating - Labs Labs: CBC WBC 8.6 K/mm3 (4.0-10.0) 08/01/19 06:43 RBC 3.08 M/mm3 (3.60-5.2) L 08/01/19 06:43 Hgb 8.9 GM/dL (10.7-15.3) L 08/01/19 06:43 Hct 26.5 % (32.4-45.2) L 08/01/19 06:43 MCV 86.0 fl (80-96) 08/01/19 06:43 MCH 28.8 pg (25.7-33.7) 08/01/19 06:43 MCHC 33.5 g/dl (32.0-36.0) 08/01/19 06:43 RDW 14.1 % (11.6-15.6) 08/01/19 06:43 Plt Count 228 K/MM3 (134-434) 08/01/19 06:43 MPV 9.2 fl (7.5-11.1) 08/01/19 06:43 Absolute Neuts (auto) 5.9 K/mm3 (1.5-8.0) 08/01/19 06:43 Neutrophils % 68.1 % (42.8-82.8) 08/01/19 06:43 Lymphocytes % 24.5 % (8-40) 08/01/19 06:43 Monocytes % 5.5 % (3.8-10.2) 08/01/19 06:43 Eosinophils % 1.6 % (0-4.5) 08/01/19 06:43 Basophils % 0.3 % (0-2.0) 08/01/19 06:43 Nucleated RBC % 0 % (0-0) 08/01/19 06:43 Problem List - Problems (1) Encounter for care after planned out of hospital delivery Code(s): Z39.2 - ENCOUNTER FOR ROUTINE FOLLOW-UP (2) Anemia Code(s): D64.9 - ANEMIA, UNSPECIFIED Assessment/Plan stable Anemia , hemodynamically stable & counselled discharge today
[2019-08-02 08:54] VITALS: BP 106/61; PULSE 77
== END 2019-08-02 12:40 | disposition home or self-care (01) | DRG 560 ==
LOC: JLDR 19:45 → MERGE 19:45 → J3W 07-31 17:23
PROVIDERS: ADMIT Obstetrics & Gynecology; ATTEND Obstetrics & Gynecology
PROC: 10E0XZZ Delivery of Products of Conception, External Approach (ICD-10-PCS; principal; 2019-07-31)
PROC: 0HQ9XZZ Repair Perineum Skin, External Approach (ICD-10-PCS; 2019-07-31)
DX: O26.62 Liver and biliary tract disorders in childbirth (principal); K83.1 Obstruction of bile duct; O69.81X0 Labor and delivery complicated by cord around neck, without compression, not applicable or unspecified; O70.0 First degree perineal laceration during delivery; O99.02 Anemia complicating childbirth; D64.9 Anemia, unspecified; Z3A.37 37 weeks gestation of pregnancy; Z37.0 Single live birth
CPT/HCPCS: 36415; 59409; 80048; 85025; 85610; 85730; 86593; 86850; 86900; 86901; 87389

== ENCOUNTER 2019-10-25 05:39 | Day surgery (SDC) | payer OTHER ==
[2019-10-17 17:27] VITALS: BMI 24.0
[2019-10-25] MEDS ORDERED: PROPOFOL 20 ML ONE (10:16)
[2019-10-25] MEDS ORDERED: SUCCINYLCHOLINE CHLORIDE 200 MG/10 ML SYRINGE ONE (10:16)
[2019-10-25] MEDS ORDERED: MIDAZOLAM HCL 2 MG/2 ML SINGLE DOSE VIAL ONE (10:16)
--- NOTE | 2019-10-25 11:01 | HP ---
History & Physical Update - History History: No Change (Patient seen and counseled at bedside in pre-op area. All questions answered and informed consent obtained. Negative urine test on 10/24/19 in the office) - Physical Physical: No Change - Assessment Assessment: No Change - Plan Plan: No Change
[2019-10-25] MEDS ORDERED: ceFAZolin SODIUM 1 GM VIAL ONE (11:21)
[2019-10-25] MEDS ORDERED: DEXAMETHASONE SOD PHOSPHATE 4 MG/1 ML VIAL ONE (11:25)
[2019-10-25] MEDS ORDERED: BUPIVACAINE HCL/PF 0.5% (5MG/ML) 10 ML VIAL IJ ONE (11:37)
[2019-10-25] MEDS ORDERED: ePHEDrine SULFATE 50 MG/1 ML AMPULE ONE (11:37)
[2019-10-25] MEDS ORDERED: PHENYLEPHRINE HCL 10 MG/1 ML SINGLE DOSE VIAL ONE (11:38)
[2019-10-25] MEDS ORDERED: KETOROLAC TROMETHAMINE 30 MG/1 ML VIAL ONE (12:12)
[2019-10-25] MEDS ORDERED: oxyCODONE HCL 5 MG TABLET PO PRN (12:23)
[2019-10-25] MEDS ORDERED: ACETAMINOPHEN 325 MG TABLET (FP) PO PRN (12:23)
[2019-10-25] MEDS ORDERED: ONDANSETRON 4 MG/2 ML VIAL IVPUSH PRN (12:23)
--- NOTE | 2019-10-25 12:29 | OP ---
Operative Note - Note: Operative Date: 10/25/19 Pre-Operative Diagnosis: Elective sterilization Operation: Laprascopic bilateral salpingectomy Post-Operative Diagnosis: Same as Pre-op Surgeon: Moises Caal Electric Organ Inspector And Repairer: Ralph Mohan Anesthesiologist/HOSPICE HOME HEALTH AIDE: Ovi Barnard Anesthesia: General Specimens Removed: bilateral tubes Estimated Blood Loss (mls): 3 Drains, Volume Out (mls): 50 Fluid Volume Replaced (mls): 400 Operative Report Dictated: Yes
[2019-10-25] MEDS ORDERED: LACTATED RINGERS SOLUTION 1,000 ML IV SCH (12:30)
--- NOTE | 2019-10-25 12:30 | SURG ---
Surgery Payroll Supervisor Note Payroll Supervisor: Ralph Mohan PA-C Date of Service: 10/25/19 Diagnosis: Elective sterilization Procedure: Laprascopic bilateral salpingectomy I was present for the entirety of the operative procedure. For further detail, please refer to operative report. Visit type - Case Type Case Type: Scheduled - New patient This patient is new to me today: Yes Date on this admission: 10/25/19
--- NOTE | 2019-10-25 12:32 | OP ---
Operative Note - Note: Operative Date: 10/25/19 (dic # [id number]) Pre-Operative Diagnosis: multiparity desiring sterilization Operation: Laparoscopic bilateral salpingectomy Findings: see dictation Post-Operative Diagnosis: Same as Pre-op Surgeon: Moises Caal Jacker: Ralph Mohan Anesthesia: General Specimens Removed: bilateral fallopian tubes Estimated Blood Loss (mls): 5 (minimal) Drains, Volume Out (mls): 400 (clear urine) Operative Report Dictated: Yes
[2019-10-25] MEDS ORDERED: ACETAMINOPHEN 325 MG TABLET (FP) ONE (14:39)
[2019-10-25 16:49] VITALS: BP 104/60; PULSE 67; TEMP 98.3
--- NOTE | 2019-10-26 11:06 | OP ---
DATE OF OPERATION: 10/25/2019 PREOPERATIVE DIAGNOSIS: A 24-year-old para 2 desiring sterilization. POSTOPERATIVE DIAGNOSIS: A 24-year-old para 2 desiring sterilization. PROCEDURE: Laparoscopic bilateral salpingectomy. SURGEON: Coco Caal MD VP MEDICAL: MANSOOR Bai ESTIMATED BLOOD LOSS FROM THE PROCEDURE: Minimal. INTRAVENOUS FLUIDS: Per anesthesia. URINE OUTPUT: Clear urine 400 mL. COMPLICATIONS: None. FINDINGS: Normal anterior abdominal wall anatomy with right lower quadrant scar consistent with history of prior appendectomy. Intraabdominal findings were consistent with regular anatomy. Thin omental adhesions to the anterior peritoneum in the right lower quadrant. Uterus and bilateral tubes and ovaries consistent with normal anatomy. No active bleeding and no evidence of trauma at the point of entry. The uterus was approximately 9 cm in length. Urine test on September, at the [facility] was negative. PROCEDURE: The patient was taken to the operating room where anesthesia was found to be adequate. She was then prepped and draped in the normal sterile fashion. A De La O catheter was placed atraumatically. A proper timeout took place. A metal retractor was utilized to visualize the cervix and its anterior aspect grasped with atraumatic tenaculum. The cervix was slightly dilated with a scant amount of dark blood in the vaginal vault. A HUMI manipulator was introduced without difficulty to a depth of 8 cm and balloon tip inflated. All instruments were retrieved from the vagina and attention then was directed to the anterior abdominal wall. An infraumbilical incision was made with the scalpel to accommodate a Cesar trocar. Subcutaneous tissues were bluntly dissected off and the underlying fascia grasped and elevated with Vandana clamps. The fascia was transected with the Jackson scissors and blunt entry into the peritoneal cavity took place. The Cesar trocar was placed without any resistance following anchoring of fascial incisional edges with 0 Polysorb sutures. Activation of insufflation immediately took place and inspection via the laparoscope revealed appropriate placement, no active bleeding or evidence of trauma at the point of entry and findings as previously mentioned. A right lower quadrant 5-mm laparoscopic trocar was placed under constant visualization without difficulty followed by a left lower quadrant one. The right fallopian tube was followed to its fimbriated end and elevated with the atraumatic grasper. The tube was excised utilizing the LigaSure instrument. The mesosalpinx immediately adjacent to the tube was cauterized and transected and the entire tube was removed. The tube was placed in the anterior cul-de-sac. Attention then was redirected to the contralateral fallopian tube which underwent the exact same procedure as just described. It is to be noted that the excision of the tube was performed after the tube was elevated from any surrounding viscera. The scope was placed through the left lower quadrant port and the tubes were retrieved through the infraumbilical Cesar port without difficulty. The specimens were sent to Pathology. On secondary inspection of the surgical field once again the abdominal cavity revealed excellent hemostasis and no evidence of trauma. The right lower quadrant port was removed under constant visualization followed by the left lower quadrant one. All insufflating medium was discontinued and evacuated from the abdomen. The laparoscope was removed as well as the Cesar port. The fascial infraumbilical incision was reapproximated via the previously placed 0 Polysorb anchoring stitches. No fascial defect noted after reapproximation and subcutaneous tissues were reapproximated with Biosyn 4-0 subcuticular sutures. Excellent reapproximation and hemostasis at the conclusion of the procedure. The patient in stable condition. Instrument count was reported as correct x2 by the staff. COCO CAAL MD [id number] MTDTawana
--- NOTE | 2019-10-26 17:30 | PATH ---
Surgical Pathology Report Patient Name: CLAYTON KRISHNAMURTHY [facility]. Rec. #: [id number] /Age/Gender: 1995 (Age: 24) / F Account: [id number] Location: [facility] SUR[facility]ICAL Taken: 10/25/2019 Received: 10/25/2019 Reported: 10/26/2019 Physicians: Moises Caal MD Specimen(s) Received BILATERAL FALLOPIAN TUBES Clinical History Multiparity, voluntary sterilization Final Diagnosis FALLOPIAN TUBES, BILATERAL, SALPINGECTOMY: BILATERAL FALLOPIAN TUBES WITH COMPLETE CROSS SECTION OF THE FALLOPIAN TUBE LUMENS. PARATUBAL CYST PRESENT. Electronically Signed Lizy Varner M.D. Gross Description Received in formalin labeled "fallopian tubes, bilateral," are 2 undesignated, fimbriated fallopian tubes measuring 5.0 and 5.5 cm in length. The shorter portion displays a 0.7 cm in greatest dimension paratubal cyst attached to the fimbria. The outer surfaces are shukla purple and smooth. Sectioning reveals unremarkable lumen. Lift Electrician sections are submitted in 4 cassettes as follows: 1-shorter fallopian tube fimbria with paratubal cyst; 2-cross sections of shorter fallopian tube; 3-longer fallopian tube fimbria; 4-cross sections of longer fallopian tube. /10/25/2019 saudi10/25/2019
== END 2019-10-25 15:35 | disposition home or self-care (01) ==
LOC: JASU-SURG 05:39
PROVIDERS: ATTEND Student in an Organized Health Care Education/Training Program
PROC: 0U574ZZ Destruction of Bilateral Fallopian Tubes, Percutaneous Endoscopic Approach (ICD-10-PCS; principal; 2019-10-25 11:00)
DX: Z30.2 Encounter for sterilization (principal)
CPT/HCPCS: 36415; 84703; 86850; 86900; 86901; 94760